=== PATIENT | male | born 1980 ===

== ENCOUNTER 2018-10-06 19:09 | Emergency (ER) | payer OTHER ==
[~2018-10-06] VITALS: Ht 172.1 cm; Wt 80.0 kg
[2018-10-06 22:10] VITALS: BP 122/81; TEMP 98.8
== END 2018-10-06 22:10 | disposition home or self-care (01) ==
LOC: ED 19:09
DX: H57.11 Ocular pain, right eye (principal); H11.31 Conjunctival hemorrhage, right eye; W22.8XXA Striking against or struck by other objects, initial encounter
CPT/HCPCS: 99283